=== PATIENT | female | born 1975 | race Caucasian/White ===

== ENCOUNTER 2018-01-15 13:32 | Emergency (ER) | payer BC ==
[2018-01-15 13:45] VITALS: BMI 28.1
--- NOTE | 2018-01-15 14:08 | PDOC ---
History of Present Illness <Cathi Turner - Last Filed: 01/15/18 15:25> - History of Present Illness Initial Comments: 01/15/18 14:05 42 yo F with no significant pmh wo p/w N/V. Patient reports acute onset of non bilious, non bloody emesis and diaphoresis 0300 this AM with no associated abdominal pain, watery stools, or BPR. Patient also reports episode of lightheadedness while sitting on toilet. Patient at bedside states that patient was alert, lethargic appearing, and not responsive to verbal stimuli, with no LOC. Denies head/neck/back trauma. Patient with diphendhydramine (50 mg ) use for past 3 days for recent contact hypersensitivity reaction/posioin rachna while outside gardening. Denies F/C, N/V, CP, SOB, abdominal pain, diarrhea, constipation, urinary complaints, weakness, lightheadedness, sensory changes PMHx: As noted above ROS: As noted above SHx: Denies tobacco use. intermittent Etoh/Wine. Denies h/o IVDA. No recent sick contacts, traveling, hiking, or camping. Allergies: NKDA <Barron Pinon - Last Filed: 01/15/18 17:10> <Pepe Lockett - Last Filed: 01/22/18 18:36> - General Chief Complaint: Syncope/Near Syncope Stated Complaint: near syncope,diarrhea,vomiting. Time Seen by Provider: 01/15/18 13:36 Past History <Cathi Turner - Last Filed: 01/15/18 15:25> - Past Medical History COPD: No Other medical history: poson rachna since Friday - Suicide/Smoking/Psychosocial Hx Smoking History: Never smoked <Barron Pinon - Last Filed: 01/15/18 17:10> <Pepe Lockett - Last Filed: 01/22/18 18:36> - Past Medical History Allergies/Adverse Reactions: Allergies Allergy/AdvReac Type Severity Reaction Status Date / Time No Known Allergies Allergy Verified 01/15/18 13:41 Home Medications: Ambulatory Orders Cetirizine HCl [Zyrtec -] 2 tab PO ASDIR 01/15/18 Diphenhydramine HCl [Benadryl -] 50 mg PO ASDIR 01/15/18 Review of Systems - Review of Systems Comments:: 01/15/18 14:06 GENERAL/CONSTITUTIONAL: No fever or chills. No weakness. HEAD, EYES, EARS, NOSE AND THROAT: No change in vision. No ear pain or discharge. No sore throat. CARDIOVASCULAR: No chest pain or shortness of breath RESPIRATORY: No cough, wheezing, or hemoptysis. GASTROINTESTINAL: + nausea, and vomiting. No diarrhea or constipation. GENITOURINARY: No dysuria, frequency, or change in urination. MUSCULOSKELETAL: No joint or muscle swelling or pain. No neck or back pain. SKIN: No rash NEUROLOGIC: + lightheadedness. No headache, vertigo, loss of consciousness, or change in strength/sensation. ENDOCRINE: No increased thirst. No abnormal weight change HEMATOLOGIC/LYMPHATIC: No anemia, easy bleeding, or history of blood clots. ALLERGIC/IMMUNOLOGIC: No hives or skin allergy. <Barron Pinon - Last Filed: 01/15/18 17:10> *Physical Exam - Vital Signs Last Vital Signs Temp Pulse Resp BP Pulse Ox 98.9 F 89 18 124/82 96 01/15/18 13:33 01/15/18 13:33 01/15/18 13:33 01/15/18 13:33 01/15/18 13:33 <Cathi Turner - Last Filed: 01/15/18 15:25> - Vital Signs Last Vital Signs Temp Pulse Resp BP Pulse Ox 98.9 F 89 18 124/82 96 01/15/18 13:33 01/15/18 13:33 01/15/18 13:33 01/15/18 13:33 01/15/18 13:33 - Physical Exam Comments: 01/15/18 14:06 GENERAL: Awake, alert, and fully oriented, in no acute distress HEAD: No signs of trauma, normocephalic, atraumatic EYES: Pupils 5-6 mm in diameter. PERRLA, EOMI, sclera anicteric, conjunctiva clear ENT: Dry mucosa. Auricles normal inspection, hearing grossly normal, nares patent, oropharynx clear without exudates. NECK: Normal ROM, supple, no lymphadenopathy, JVD, or masses LUNGS: No distress, speaks full sentences, clear to auscultation bilaterally HEART: Regular rate and rhythm, normal S1 and S2, no murmurs, rubs or gallops, peripheral pulses normal and equal bilaterally. ABDOMEN: Soft, nontender, normoactive bowel sounds. No guarding, no rebound. No masses EXTREMITIES : Normal inspection, Normal range of motion, no edema. No clubbing or cyanosis. NEUROLOGICAL: Cranial nerves II through XII grossly intact. Normal speech, normal gait, no focal sensorimotor deficits. SKIN: Warm, Dry, normal turgor, no rashes or lesions noted <Barron Pinon - Last Filed: 01/15/18 17:10> - Vital Signs Last Vital Signs Temp Pulse Resp BP Pulse Ox 98.5 F 82 18 91/50 98 01/15/18 17:30 01/15/18 17:30 01/15/18 17:30 01/15/18 17:30 01/15/18 17:30 <Pepe Lockett - Last Filed: 01/22/18 18:36> Heart Score/ECG Review - ECG Impressions Comment:: ECG reviewed by Dr. Lockett at 14:25. Impression: Normal sinus rhythm with rate of 91 bpm. <Cathi Turner - Last Filed: 01/15/18 15:25> ED Treatment Course - LABORATORY CBC & Chemistry Diagram: 01/15/18 14:00 01/15/18 14:00 - ADDITIONAL ORDERS Additional order review: Laboratory Results 01/15/18 01/15/18 01/15/18 14:00 14:00 14:00 PT with INR 11.4 INR 1.02 Sodium 136 Potassium 4.4 Chloride 104 Carbon Dioxide 25 Anion Gap 7 L BUN 14 Creatinine < 0.8 Creat Clearance w eGFR > 60 Random Glucose 147 H Calcium 8.4 Total Bilirubin 0.6 AST 21 ALT 16 Alkaline Phosphatase 46 Creatine Kinase 67 Troponin I Total Protein 7.0 Albumin 4.0 01/15/18 14:00 PT with INR INR Sodium Potassium Chloride Carbon Dioxide Anion Gap BUN Creatinine Creat Clearance w eGFR Random Glucose Calcium Total Bilirubin AST ALT Alkaline Phosphatase Creatine Kinase Troponin I < 0.03 Total Protein Albumin 01/15/18 14:00 RBC 4.17 MCV 91.4 MCHC 34.6 RDW 12.4 MPV 7.0 L Neutrophils % No Result Required. Lymphocytes % No Result Required. - Medications Given in the ED: ED Medications Discontinued Medications Generic Name Dose Route Start Last Admin Trade Name Freq PRN Reason Stop Dose Admin Ondansetron HCl 4 mg 01/15/18 14:45 01/15/18 14:46 Zofran Injection IVPB 01/15/18 14:46 4 mg ONCE ONE Administration <Cathi Turner - Last Filed: 01/15/18 15:25> - LABORATORY CBC & Chemistry Diagram: 01/15/18 14:00 01/15/18 14:00 <Barron Pinon - Last Filed: 01/15/18 17:10> - LABORATORY CBC & Chemistry Diagram: 01/15/18 14:00 01/15/18 14:00 - ADDITIONAL ORDERS Additional order review: 01/15/18 14:00 RBC 4.17 MCV 91.4 MCHC 34.6 RDW 12.4 MPV 7.0 L Neutrophils % No Result Required. Lymphocytes % No Result Required. - Medications Given in the ED: ED Medications Discontinued Medications Generic Name Dose Route Start Last Admin Trade Name Freq PRN Reason Stop Dose Admin Acetaminophen 1,000 mg 01/15/18 14:52 01/15/18 15:41 Ofirmev Injection - IVPB 01/15/18 14:53 1,000 mg ONCE ONE Administration Sodium Chloride 1,000 mls @ 1,000 mls/hr 01/15/18 14:40 01/15/18 14:45 Normal Saline - IV 01/15/18 15:39 1,000 mls/hr ASDIR STA Administration Sodium Chloride 1,000 mls @ 1,000 mls/hr 01/15/18 16:00 01/15/18 16:03 Normal Saline - IV 01/15/18 16:59 1,000 mls/hr ASDIR STA Administration Ibuprofen 800 mg 01/15/18 17:10 01/15/18 17:20 Caldolor Injection - IVPB 01/15/18 17:11 800 mg ONCE ONE Administration Ondansetron HCl 4 mg 01/15/18 14:45 01/15/18 14:46 Zofran Injection IVPB 01/15/18 14:46 4 mg ONCE ONE Administration <Pepe Lockett - Last Filed: 01/22/18 18:36> Medical Decision Making - Medical Decision Making 01/15/18 14:07 42 yo F with no significant pmh wo p/w N/V, and lightheadedness. A&Ox3, VSS, AF. R/o Will assess for cardiac dysrrythmia, hypovolemia, hypoglycemia, electrolyte abnml, toxic, metabolic or acid base disturbances, underlying infections. ED Course: CBC, CMP, PT/INR, Cardiac Pr UA EKG 01/15/18 15:42 CBC: WBC-9.3, neutrophil 93 % CMP: Unremarkable Trop: Neg 01/15/18 17:53 Patient stable for d/c with return precautions. Patient tolerating PO intake and able to ambulate without difficulty. Patient DE DIOS improved following IV tylenol 1000 mg and Ibuprofen 800 mg . <Barron Pinon - Last Filed: 01/15/18 17:10> *DC/Admit/Observation/Transfer - Attestations Scribe Attestion: Documentation prepared by Cathi Turner, acting as medical imaging technologist for Pepe Lockett MD. <Cathi Turner - Last Filed: 01/15/18 15:25> - Discharge Dispostion Decision to Admit order: No - Attestations Physician Attestion: 01/15/18 14:06 I attest to the information provided in this note. <Barron Pinon - Last Filed: 01/15/18 17:10> <Pepe Lockett - Last Filed: 01/22/18 18:36> Diagnosis at time of Disposition: Gastroenteritis, Dehydration - Discharge Dispostion Disposition: HOME Condition at time of disposition: Stable - Patient Instructions Printed Discharge Instructions: DI for Nausea -- Adult Additional Instructions: Please return to the emergency department with any new or worsening symptoms or concerns. Please follow up with your primary care physician within 72 hours.
--- NOTE | 2018-01-15 14:11 | PDOC ---
History of Present Illness - General Chief Complaint: Syncope/Near Syncope Stated Complaint: near syncope,diarrhea,vomiting. Time Seen by Provider: 01/15/18 13:36 Past History - Past Medical History Allergies/Adverse Reactions: Allergies Allergy/AdvReac Type Severity Reaction Status Date / Time No Known Allergies Allergy Verified 01/15/18 13:41 Home Medications: Ambulatory Orders Cetirizine HCl [Zyrtec -] 2 tab PO ASDIR 01/15/18 Diphenhydramine HCl [Benadryl -] 50 mg PO ASDIR 01/15/18 *DC/Admit/Observation/Transfer - Discharge Dispostion Condition at time of disposition: Stable - Referrals - Patient Instructions - Post Discharge Activity
[2018-01-15] MEDS ORDERED: ONDANSETRON 4 MG/2 ML VIAL ONE (14:18)
[2018-01-15 14:33] LABS: HEMATOCRIT 38.1 % (32.4-45.2); HEMOGLOBIN 13.2 GM/dl (10.7-15.3); MCH 31.6 pg (25.7-33.7); MCHC 34.6 g/dl (32.0-36.0); MEAN CELL VOLUME 91.4 fl (80-96); PLATELET COUNT 201 K/MM3 (134-434); RBC 4.17 M/mm3 (3.60-5.2); RDW 12.4 % (11.6-15.6); WHITE BLOOD COUNT 9.3 K/mm3 (4.0-10.8)
[2018-01-15 14:36] LABS: ADD RBC MORPHOLOGY YES
[2018-01-15 14:37] LABS: INR 1.02 (0.82-1.09); PROTHROMBIN TIME (PATIENT) 11.4 SEC (10.2-13.0)
[2018-01-15 14:38] LABS: ALK PHOS 46 U/L (32-92); ANION GAP 7 (8-16); BILIRUBIN,TOTAL 0.6 mg/dl (0.2-1.0); BLOOD UREA NITROGEN 14 mg/dl (7-18); CALCIUM 8.4 mg/dl (8.4-10.2); CHLORIDE 104 mmol/L (98-107); CO2 25 mmol/L (22-28); GLUCOSE,RANDOM 147 mg/dl (74-106); POTASSIUM 4.4 mmol/L (3.5-5.1); SGOT/AST 21 U/L (10-42); SGPT/ALT 16 U/L (10-40); SODIUM 136 mmol/L (136-145)
[2018-01-15] MEDS ORDERED: SODIUM CHLORIDE 1,000 ML IV STA ×2 (14:40→16:00)
[2018-01-15] MEDS ORDERED: ONDANSETRON 4 MG/2 ML VIAL IVPB ONE (14:45)
[2018-01-15 14:49] LABS: CREATININE < 0.8 mg/dl (0.6-1.3)
[2018-01-15] MEDS ORDERED: ACETAMINOPHEN 1000 MG/100 ML VIAL (NON FORMULARY) IVPB ONE (14:52)
[2018-01-15 15:35] LABS: PLATELET ESTIMATE ADEQUATE
[2018-01-15] MEDS ORDERED: ACETAMINOPHEN INJECTION 100 ML IVPB ONE (15:39)
[2018-01-15] MEDS ORDERED: IBUPROFEN 800 MG/8 ML IJ IVPB ONE ×2 (17:10→17:12)
[2018-01-15 18:00] VITALS: BP 91/50; PULSE 82; TEMP 98.5
--- NOTE | 2018-01-16 11:22 | EKG ---
Test Reason : Blood Pressure : / mmHG Vent. Rate : 091 BPM Atrial Rate : 091 BPM P-R Int : 170 ms QRS Dur : 084 ms QT Int : 358 ms P-R-T Axes : 042 046 -06 degrees QTc Int : 440 ms NORMAL SINUS RHYTHM NONSPECIFIC T WAVE ABNORMALITY ABNORMAL ECG NO PREVIOUS ECGS AVAILABLE Confirmed by MONICA GARCÍA, DHIRAJ ([id number]) on 01/16/2018 11:22:03 AM Referred By: SENIA MORGAN Confirmed By:DHIRAJ ANDERSON MD
--- NOTE | 2018-01-22 08:31 | PDOC ---
Attending Attestation - Resident Resident Name: Barron Pinon - ED Attending Attestation I have performed the following: I have examined & evaluated the patient, The case was reviewed & discussed with the resident, I agree w/resident's findings & plan, Exceptions are as noted - HPI HPI: 42 y/o female, presented to ER with nausea , vomiting and a rash over lower extremities .The later occured after exposed to poison rachna 01/22/18 08:31 - Physicial Exam PE: Alert, oriented x 3, ambulatory, Mild to moderate distress. Abdomen soft, mildly tender Improving with treatment - Medical Decision Making iv fluids, lab reports and symptomatic treatment with marked improvement after 3 hours of observation 01/22/18 08:45
== END 2018-01-15 18:03 | disposition home or self-care (01) ==
LOC: FER 13:32
PROC: 3E033NZ Introduction of Analgesics, Hypnotics, Sedatives into Peripheral Vein, Percutaneous Approach (ICD-10-PCS; principal; 2018-01-15)
PROC: 3E033GC Introduction of Other Therapeutic Substance into Peripheral Vein, Percutaneous Approach (ICD-10-PCS; 2018-01-15)
PROC: 3E0337Z Introduction of Electrolytic and Water Balance Substance into Peripheral Vein, Percutaneous Approach (ICD-10-PCS; 2018-01-15)
DX: K52.9 Noninfective gastroenteritis and colitis, unspecified (principal); E86.0 Dehydration
CPT/HCPCS: 36415; 80053; 82550; 84484; 84703; 85025; 85610; 93005; 99284-25; J0131; J7030